=== PATIENT | female | born 1990 | race Caucasian/White ===

== ENCOUNTER 2017-08-12 14:27 | Emergency (ER) | payer MEDICAID ==
[~2017-08-12 14:27] MED LIST: Z.0.NO CURRENT MEDS
[2017-08-12 14:44] VITALS: BP 177/92; PULSE 71; RESP 18; TEMP 98.4; O2SAT 98
[2017-08-12] MEDS ORDERED: AUGM875T3 PO (17:10)
--- NOTE | 2017-08-12 17:11 | PD ---
HPI Chief Complaint: Oral / Dental Pain or Problem Time Seen by Provider: 16:42 Travel History International Travel<30 days: No Contact w/Intl Traveler<30days: No Traveled to known affect area: No History of Present Illness HPI 19-year-old female here with dental pain and facial swelling 4 days. Denies fever or chills. Denies difficulty swallowing. Reports history of multiple dental infections in the past similar symptoms. Symptom severity is moderate. Nonradiating alleviating factors. PFSH Past Medical History Anemia: Yes Diminished Hearing: No ?: Unknown LMP: IUD, no cycle in months : 0 Para: 0 Social History Alcohol Use: No Tobacco Use: No Substance Use: No Allergies-Medications (Allergen,Severity, Reaction): Coded Allergies: adhesive (Unverified Allergy, Mild, ITCHEY RASH, 01/14/17) Reported Meds & Prescriptions Reported Meds & Active Scripts Active Augmentin (Amoxicillin-Clavulanate) 875-125 Mg Tab 1 Tab PO BID Reported No Current Meds (Miscellaneous Medication) Misc Review of Systems Except as stated in HPI: all other systems reviewed are Neg General / Constitutional: No: Fever HENT: Positive: Dental Difficulties Physical Exam Narrative GENERAL: Alert well-appearing 27-year-old female SKIN: Warm and dry. HEAD: Normocephalic. Mild right-sided facial swelling EYES: No injection or drainage. MOUTH: Widespread dental decay. Right upper molar decayed with surrounding gum erythema. No swelling of the fourth mouth. Uvula is midline. Airway is patent. NECK: Supple Data Data Last Documented VS Vital Signs Date Time Temp Pulse Resp B/P (MAP) Pulse Ox O2 Delivery O2 Flow Rate FiO2 08/12/17 14:44 98.4 71 18 177/92 (120) 98 Orders Orders Ed Discharge Order (08/12/17 17:11) MDM Medical Decision Making Medical Screen Exam Complete: Yes Emergency Medical Condition: Yes Differential Diagnosis Dental abscess, dental caries, periodontal disease Narrative Course 27-year-old female here with mild dental infection. She is nontoxic appearing. She'll be treated with antibiotics and instructed to follow-up with her dentist Diagnosis Primary Impression: Dental infection Referrals: Dentist Additional Instructions: Antibiotics as directed. Warm salt water swishes as directed. Follow up with her dentist Scripts Amoxicillin-Clavulanate (Augmentin) 875-125 Mg Tab 1 TAB PO BID for Infection, #20 TAB 0 Refills Prov: Jailene Pat 08/12/17 Disposition: 01 DISCHARGE HOME Condition: Stable Jailene Pat Aug 12, 2017 17:11
== END 2017-08-12 17:38 | disposition home or self-care (01) ==
LOC: NEPK 14:27
DX: K04.7 Periapical abscess without sinus (principal)
CPT/HCPCS: 99283